=== PATIENT | female | born 1995 | race Hispanic/Latino ===

== ENCOUNTER 2020-02-21 12:49 | Emergency (ER) | payer OTHER, SELFPAY ==
[2020-02-21 14:45] LABS: Bilirubin Negative (Negative); Blood, Urine Negative (Negative); Clarity Turbid (Clear); Glucose, Urine (Dipstick) Normal (Negative); Ketone, Urine Negative (Negative); Leukocyte 500 Leu/uL (Negative); Nitrite Negative (Negative); Protein, Urine (Dipstick) Negative (Neg-Trace); RBC/HPF None Seen HPF (0-3); Specific Gravity, Urine 1.007 (1.002-1.036); Squamous Epithelial 21-50 HPF (0-3); Urobilinogen Normal mg/dL (Less than 2); WBC/HPF 21-50 HPF (0-3)
[2020-02-21 14:48] LABS: Pregnancy Test - Urine (BHCG) Negative (Negative); Pregu Control Background? CLEAR/WHITE (CLR/WHITE); Pregu Control Bar Appear? YES (CONTROL BAR); Specific Gravity 1.007 (1.002-1.036)
[2020-02-21 14:56] LABS: Bacteria/HPF None Seen HPF (None Seen); Yeast-Budding 1+ HPF (None Seen); Yeast-Hyphae 1+ HPF (None Seen)
[2020-02-21] MEDS ORDERED: Ketorolac Tromethamine 30 MG/ML VIAL ONE (15:16)
== END 2020-02-21 15:30 | disposition home or self-care (01) ==
LOC: ERS 12:49
DX: N39.0 Urinary tract infection, site not specified (principal)
CPT/HCPCS: 81003; 81015; 81025; 87086; 96372; 99284; J1885

== ENCOUNTER 2020-12-04 10:04 | Emergency (ER) | payer SELFPAY ==
[2020-12-04 16:46] LABS: SARS-CoV-2 PCR by NAA DETECTED (NotDetected)
== END 2020-12-04 10:45 | disposition home or self-care (01) ==
LOC: ERS 10:04
DX: U07.1 COVID-19 (principal)
CPT/HCPCS: 99284; U0003; U0005

== ENCOUNTER 2020-12-13 13:05 | Emergency (ER) | payer SELFPAY ==
[2020-12-13 14:36] LABS: BHCG - Serum Negative (NEGATIVE); Pregs Control Background? CLEAR/WHITE (CLR/WHITE); Pregs Control Bar Appear? YES (CONTROL BAR)
[2020-12-13] MEDS ORDERED: Ibuprofen 200 MG TAB ONE (15:02)
[2020-12-13] MEDS ORDERED: hydrOXYzine 25 MG TAB ONE (15:05)
== END 2020-12-13 16:35 | disposition home or self-care (01) ==
LOC: ERS 13:05
DX: R06.02 Shortness of breath (principal); M54.6 Pain in thoracic spine
CPT/HCPCS: 71045; 84703; 85379